=== PATIENT | female | born 1990 | race Caucasian/White ===

== ENCOUNTER 2016-11-20 14:52 | Emergency (ER) | payer OTHER ==
[~2016-11-20] VITALS: Ht 157.5 cm; Wt 89.9 kg
[2016-11-20 15:44] LABS: HEMATOCRIT 35.4 % (36.0-46.0); MCH 31.8 PG (29.0-34.0); MCHC 33.3 G/DL (30.0-36.0); MCV 95.4 FL (83-99); MEAN PLAT.VOLUME 10.1 uM^3 (9.5-12.4); PLATELET COUNT 296 K/uL (156-360); RBC DIS.WIDTH-SD 45.4 % (39-53); RED BLOOD COUNT 3.71 M/uL (3.80-5.20); WHITE BLOOD COUNT 11.4 K/uL (4.1-10.2)
[2016-11-20 15:56] LABS: CHLORIDE 106 mEq/L (99-109); POTASSIUM 3.8 mEq/L (3.7-5.4); SODIUM 139 mEq/L (136-147)
[2016-11-20 15:58] LABS: GLUCOSE 82 mg/dL (70-99)
[2016-11-20 16:00] LABS: ANION GAP 11 MEQ/L (2-14)
[2016-11-20 16:02] LABS: GFR ESTIMATE (CALCULATED) > 59 mL/min/
[2016-11-20 16:03] LABS: UREA NITROGEN (BUN) 11 mg/dL (9-23)
[2016-11-20 16:28] LABS: ADD MIUA? YES; BILIRUBIN NEGATIVE; BLOOD LARGE; COLOR YELLOW ((YELLOW)); GLUCOSE (STRIP) NEGATIVE; KETONES NEGATIVE; LEUKOCYTES LARGE; NITRITE NEGATIVE; PROTEIN (STRIP) 30; SPECIFIC GRAVITY 1.006 (1.000-1.030); UROBILINOGEN 0.2 MG/DL (0.2-1.0)
[2016-11-20 16:40] LABS: TOTAL BILIRUBIN 0.2 mg/dL (0.0-1.0)
[2016-11-20 16:41] LABS: ALKALINE PHOSPHATASE 110 IU/L (3-129)
[2016-11-20 16:42] LABS: BACTERIA 2+ /HPF; EPITHELIAL CELLS 2+ /HPF; UCUL ADDED? YES; WHITE BLOOD CELLS TNTC /HPF (0-5)
[2016-11-20 16:44] LABS: MUCUS NONE SEEN /LPF
[2016-11-20 16:44] LABS: DIRECT BILIRUBIN 0.1 mg/dL (0.0-0.3)
[2016-11-20] MEDS ORDERED: MACROBID100 MG PO (17:43)
[2016-11-20] MEDS ORDERED: PROCARDIA XL30 MG PO (17:43)
[2016-11-20 17:55] VITALS: BP 150/91
== END 2016-11-20 17:55 | disposition home or self-care (01) ==
LOC: EME 14:52
PROVIDERS: Physician Assistant
DX: O86.20 Urinary tract infection following delivery, unspecified (principal); I10 Essential (primary) hypertension; E03.9 Hypothyroidism, unspecified
CPT/HCPCS: 80048; 80076; 81003; 84443; 85027; 87086; 93005; 99281; 99284

== ENCOUNTER 2018-02-08 16:49 | Emergency (ER) | payer OTHER ==
[~2018-02-08] VITALS: Ht 157.5 cm; Wt 71.7 kg
[~2018-02-08 16:49] MED LIST: MACROBID100 MG PO; PROCARDIA XL30 MG PO
[2018-02-08 18:20] LABS: HEMATOCRIT 38.2 % (36.0-46.0); HEMOGLOBIN 13.5 G/DL (11.9-15.5); MCH 31.8 PG (29.0-34.0); MCHC 35.3 G/DL (30.0-36.0); MCV 89.9 FL (83-99); PLATELET COUNT 263 K/uL (156-360); RBC DIS.WIDTH-CV 12.5 % (11.8-14.6); RED BLOOD COUNT 4.25 M/uL (3.80-5.20); WHITE BLOOD COUNT 10.4 K/uL (4.1-10.2)
[2018-02-08 18:33] LABS: CHLORIDE 107 mEq/L (99-109); POTASSIUM 3.5 mEq/L (3.7-5.4); SODIUM 136 mEq/L (136-147)
[2018-02-08 18:35] LABS: GLUCOSE 137 mg/dL (70-99)
[2018-02-08 18:39] LABS: CREATININE 0.7 mg/dL (0.6-1.3); GFR ESTIMATE (CALCULATED) > 59 mL/min/
[2018-02-08 18:40] LABS: UREA NITROGEN (BUN) 13 mg/dL (9-23)
[2018-02-08 18:47] LABS: QUANTITATIVE HCG < 4.0 MIU/ML
[2018-02-08 19:09] LABS: TROP-I INTERPRETATION NEGATIVE; TROPONIN-I < 0.01 ng/mL (0.0-0.30)
[2018-02-08 21:47] LABS: TROP-I INTERPRETATION NEGATIVE; TROPONIN-I < 0.01 ng/mL (0.0-0.30)
[2018-02-08 22:22] VITALS: BP 134/89
== END 2018-02-08 22:27 | disposition home or self-care (01) ==
LOC: EME 16:49
PROVIDERS: Physician Assistant Medical
DX: R07.9 Chest pain, unspecified (principal); L50.9 Urticaria, unspecified; M32.9 Systemic lupus erythematosus, unspecified; I10 Essential (primary) hypertension; F32.9 Major depressive disorder, single episode, unspecified; Z87.891 Personal history of nicotine dependence; Z82.49 Family history of ischemic heart disease and other diseases of the circulatory system; Z88.0 Allergy status to penicillin
CPT/HCPCS: 71275; 80048; 84484; 84702; 85027; 93005; 99281; 99285; J1885; J7512